=== PATIENT | male | born 1980 | race Caucasian/White ===

== ENCOUNTER 2017-07-02 15:36 | Emergency (ER) | payer MEDICAID ==
[~2017-07-02] VITALS: Ht 177.8 cm; Wt 76.2 kg
[2017-07-02 15:37] VITALS: BP_SYST 112
[2017-07-02 16:38] LABS: CALCIUM 8.2 mg/dL (8.4-11.0); CREATININE 1.03 mg/dL (0.55-1.30); POTASSIUM 3.9 mmol/L (3.5-5.1)
[2017-07-02 16:44] LABS: ALBUMIN 4.1 g/dL (3.4-4.8); TOTAL BILIRUBIN 0.3 mg/dL (0.0-1.0)
[2017-07-02 16:50] LABS: HEMATOCRIT 41.6 % (36-54); HEMOGLOBIN 14.1 g/dL (14.0-18.0); MEAN CORPUSCULAR HEMOGLOBIN 32 pg (27-31); MEAN CORPUSCULAR HGB CONC 34 % (32-36); MEAN CORPUSCULAR VOLUME 94 fL (79.0-98.0); PLATELET COUNT (AUTO) 396 K/uL (130-430); RED BLOOD CELL COUNT(AUTO) 4.44 MIL/uL (4.2-6.2); RED CELL DISTRIBUTION WIDTH 12.6 % (9.0-15.0); WHITE BLOOD COUNT (AUTO) 2.8 K/uL (4.8-10.8)
[2017-07-02] MEDS ORDERED: NACL 0.9% 1,000 ML IV ONE (17:00)
[2017-07-02 18:00] VITALS: BP_SYST 118
[2017-07-02 18:09] LABS: BAND % (MANUAL) 6 % (0-6); BASOPHILS % (MANUAL) 0 % (0-2); EOSINOPHILS % (MANUAL) 0 % (0-7); LYMPHOCYTES % (MANUAL) 11 % (20-46); MONOCYTES % (MANUAL) 10 % (0-11)
== END 2017-07-02 18:00 | disposition home or self-care (01) ==
LOC: SED 15:36
DX: G40.909 Epilepsy, unspecified, not intractable, without status epilepticus (principal); E87.1 Hypo-osmolality and hyponatremia; E83.41 Hypermagnesemia
CPT/HCPCS: 36415; 70450; 80053; 80156; 83735; 85007; 85027; 93005; 96360; 99285; J7030